=== PATIENT | female | born 1955 | race Two or more races ===

== ENCOUNTER 2017-05-22 13:50 | Outpatient (CLI) | payer OTHER | END 2017-05-22 15:18 | disposition home or self-care (01) | LOC: SONOGRAMA 13:50 | DX: R10.2 Pelvic and perineal pain (principal) ==

== ENCOUNTER 2018-02-25 14:00 | Outpatient (CLI) | payer OTHER | END 2018-02-25 14:46 | disposition home or self-care (01) | LOC: RAD 14:00 | DX: J45.40 Moderate persistent asthma, uncomplicated (principal) ==